=== PATIENT | male | born 1980 | race Caucasian/White ===

== ENCOUNTER 2020-02-04 07:48 | Emergency (ER) | payer OTHER ==
--- NOTE | 2020-02-04 08:10 | ED Physician Documentation ---
PD HPI DYSPNEA - Stated complaint Stated Complaint: SOA,COUGH - Chief complaint Chief Complaint: Resp - History obtained from History obtained from: Patient - History of Present Illness Timing - onset: How many weeks ago (1) Timing - onset during: Light activity Timing - duration: Weeks (1) Timing - details: Gradual onset, Still present (increasing cough and wheezing/dyspnea.) Inciting event(s): Other (has had environmental allergies in the past. Started with sinus congestion. Now cough and wheezing.) Improved by: Rest, Other (no change with OTC cough med) Worsened by: Exertion, Coughing. No: Laying flat Associated symptoms: Cough, Wheezing. No: Fever, Hemoptysis, Bilateral edema Similar symptoms before: Diagnosis (periodic bronchitis. no history of asthma.) Recently seen: Not recently seen Review of Systems Constitutional: reports: Myalgias. denies: Fever, Chills Nose: reports: Congestion, Sinus pressure / pain. denies: Rhinorrhea / runny nose Throat: denies: Sore throat Cardiac: denies: Chest pain / pressure, Palpitations Respiratory: reports: Dyspnea, Cough, Wheezing GI: denies: Abdominal Pain, Vomiting, Diarrhea Skin: denies: Rash, Lesions Neurologic: denies: Altered mental status, Headache PD PAST MEDICAL HISTORY - Past Medical History Past Medical History: No Cardiovascular: None Respiratory: Other Neuro: Headaches Endocrine/Autoimmune: None GI: None : None HEENT: Other Psych: None Musculoskeletal: Osteoarthritis Derm: None Other Past Medical History: pneumothorax r/t rib fracture - Past Surgical History Past Surgical History: Yes Ortho: Shoulder arthroplasty - Present Medications Home Medications: Ambulatory Orders Medication Instructions Recorded Confirmed Albuterol Sulfate [Albuterol 3 puffs IH QID #1 hfa.aer.ad 02/04/20 Sulfate Hfa] Benzonatate [Tessalon Perle] 100 mg PO TID PRN #30 capsule 02/04/20 cefUROXime axetiL [Ceftin] 500 mg PO Q12H #14 tablet 02/04/20 dexAMETHasone [Decadron] 4 mg PO DAILY #7 tablet 02/04/20 - Allergies Allergies/Adverse Reactions: Allergies Allergy/AdvReac Type Severity Reaction Status Date / Time No Known Drug Allergies Allergy Verified 02/04/20 07:54 - Social History Does the pt smoke?: No Smoking Status: Former smoker Does the pt drink ETOH?: Yes Does the pt have substance abuse?: No - Immunizations Immunizations are current?: Yes PD ED PE NORMAL - Vitals Vital signs reviewed: Yes - General General: Alert and oriented X 3, No acute distress, Well developed/nourished - HEENT HEENT: Ears normal, Pharynx benign - Neck Neck: Supple, no meningeal sign, No adenopathy - Cardiac Cardiac: RRR, No murmur - Respiratory Respiratory: No: Clear bilaterally (no coarse sounds. Has diffuse exp wheezing and prolonged exp phase. Normal voice. ) - Abdomen Abdomen: Soft, Non tender - Derm Derm: Normal color, Warm and dry - Extremities Extremities: No tenderness to palpate, Normal ROM s pain, No edema, No calf tenderness / cord - Neuro Neuro: Alert and oriented X 3, No motor deficit, Normal speech Results - Vitals Vitals: Vital Signs - 24 hr 02/04/20 02/04/20 02/04/20 07:55 08:01 08:37 Temperature 36.2 C L Heart Rate 73 72 71 Respiratory 20 18 Rate Blood Pressure 148/96 H 136/92 H O2 Saturation 95 95 02/04/20 02/04/20 09:07 09:20 Temperature 36.1 C L Heart Rate 65 68 Respiratory 18 18 Rate Blood Pressure 156/95 H O2 Saturation 98 Oxygen O2 Source Room air - Rads (name of study) chestx ray Radiology: Prelim report reviewed (no infiltrates/acute process. ), See rad report PD MEDICAL DECISION MAKING - ED course Complexity details: considered differential (most likely environmental allergies and sinus/airway symptoms. Consider infectious too. He asked about Z-Pack.), d/w patient Departure - Departure Disposition: 01 Home, Self Care Clinical Impression: Dyspnea Qualifiers: Dyspnea type: shortness of breath Qualified Code(s): R06.02 - Shortness of breath Upper respiratory infection Qualifiers: URI type: unspecified URI Qualified Code(s): J06.9 - Acute upper respiratory infection, unspecified Reactive airway disease with wheezing Qualifiers: Asthma severity: mild Asthma persistence: intermittent Asthma complication type: with acute exacerbation Qualified Code(s): J45.21 - Mild intermittent asthma with (acute) exacerbation Condition: Stable Record reviewed to determine appropriate education?: Yes Instructions: ED Upper Resp Infec Abx Tx Follow-Up: CATALINO ROMO [Primary Care Provider] - Prescriptions: Albuterol Sulfate [Albuterol Sulfate Hfa] 3 puffs IH QID #1 hfa.aer.ad cefUROXime axetiL [Ceftin] 500 mg PO Q12H #14 tablet dexAMETHasone [Decadron] 4 mg PO DAILY #7 tablet Benzonatate [Tessalon Perle] 100 mg PO TID PRN #30 capsule PRN Reason: Cough Comments: Your chest xray is normal without any signs of pneumonia or fluid congestion. This may be mainly environmental with allergies and reactive airway, causing the cough and wheezing. However we should treat for potential bacterial infection as well. It does not sound viral, though that would be a possibility. The treatment would be the same as what we are doing. Use the albuterol inhaler 2 to 3 puffs 4 times a day and extra times as needed for wheezing and cough. Decadron steroid daily for a week to reduce airway inflammation and reduce symptoms. Use Tessalon (benzonatate) as directed for cough. Ceftin antibiotic twice daily for a week as well. There has been increasing resistance of organisms to the macrolides like Z-Roberth so this is becoming less commonly used. Discharge Date/Time: 02/04/20 09:24
[2020-02-04] MEDS ORDERED: BENZONATATE 100 MG CAPSULE PO STA (08:23)
[2020-02-04] MEDS ORDERED: CHERRY SYRUP 10 ML UDC PO ONE (08:23)
[2020-02-04] MEDS ORDERED: DEXAMETHASONE 10 MG/ML VIAL PO STA (08:23)
[2020-02-04] MEDS ORDERED: ALBUTEROL 1 PUFF INH STA (08:24)
[2020-02-04] MEDS ORDERED: guaiFENesin/CODEINE 5 ML UDC PO STA (08:27)
[2020-02-04] MEDS ORDERED: cephALEXin 250 MG CAPSULE PO STA (08:27)
--- NOTE | 2020-02-04 08:54 | XRAY Report ---
PROCEDURE: Chest 2 View X-Ray INDICATIONS: dyspnea/ cough TECHNIQUE: 2 view(s) of the chest. COMPARISON: None. FINDINGS: Surgical changes and devices: Plate and screw fixation is seen of the left clavicle. Lungs and pleura: No pleural effusions or pneumothorax. Lungs are clear. Mediastinum: Mediastinal contours are normal. Heart size is normal. Bones and chest wall: No suspicious bony abnormalities. Soft tissues appear unremarkable. IMPRESSION: Clear lungs, without infiltrates. Prior left clavicle repair. Reviewed by: Roger Nichols MD on 02/04/2020 7:52 AM OPAL Approved by: Roger Nichols MD on 02/04/2020 7:52 AM OPAL Station ID: [id number]
[2020-02-04] MEDS ORDERED: IPRATROPIUM/ALBUTEROL 3 ML NEB INH STA (08:58)
[2020-02-04 09:21] VITALS: BP 156/95
== END 2020-02-04 09:24 | disposition home or self-care (01) ==
LOC: ED 07:48
DX: J06.9 Acute upper respiratory infection, unspecified (principal); J45.21 Mild intermittent asthma with (acute) exacerbation; Z87.891 Personal history of nicotine dependence
CPT/HCPCS: 71046; 94640; 99284; A9270

== ENCOUNTER 2021-08-23 14:55 | Outpatient (CLI) | payer OTHER | END 2021-08-23 14:56 | disposition home or self-care (01) | LOC: RT 14:55 | DX: J39.3 Upper respiratory tract hypersensitivity reaction, site unspecified (principal) | CPT/HCPCS: 94060; 94727; 94729 ==

== ENCOUNTER 2021-09-01 15:20 | Outpatient (CLI) | payer OTHER ==
--- NOTE | 2021-09-01 17:26 | MRI Report ---
PROCEDURE: IACS W/WO INDICATIONS: TINNITUS, UNSPECIFIED HEARING LOSS CONTRAST: IV CONTRAST: Gadavist ml: 8.8 TECHNIQUE: Noncontrast sagittal T1 spin echo, axial FLAIR, axial gradient echo, axial diffusion and ADC through the brain. Axial thin-slice 3D CISS, coronal balanced GE, axial T1 spin echo with fat saturation thr ough the internal auditory canals. After the administration of contrast, thin slice axial and noel l T1 spin echo with fat saturation through the internal auditory canals, and axial T1 spin echo with fat saturation through the brain. COMPARISON: Correlation is made with the accompanying cervical spine MRI 09/01/2021. FINDINGS: Image quality: Excellent. Cerebellopontine angles: No cerebellopontine angle masses. Inner ear structures appear normally for med. No suspicious enhancement in the internal auditory canal or along the course of the 7th cranial nerve. CSF spaces: Ventricles are normal in size and shape. No extra-axial fluid collections. Basal ciste rns are patent. Brain: No intracranial bleeds or mass effects. López-white matter interface is intact. No abnormal intracranial enhancement. Diffusion weighted images demonstrate no acute ischemic insults. Brainste m appears normal. Normal intravascular flow voids are present. Skull and face: Calvarial marrow signal is normal. Orbits appear normal. Sinuses: Moderate to severe mucosal thickening can be seen within the maxillary sinuses. There is at least moderate mucosal thickening within the ethmoid air cells. Mild mucosal thickening is seen elsew here within the paranasal sinuses. No significant abnormal fluid can be seen within the mastoid air c ells. IMPRESSION: No imaging explanation is found for the patient's presenting symptoms. Specifically, no findings of masses or abnormal enhancement can be found within the internal auditory canals or the ce rebellopontine angle cisterns. Relatively prominent paranasal sinus disease can be seen. Reviewed by: Roger Nichols MD on 09/01/2021 4:25 PM OPAL Approved by: Roger Nichols MD on 09/01/2021 4:25 PM OPAL Station ID: [id number]
--- NOTE | 2021-09-01 17:30 | MRI Report ---
PROCEDURE: Cervical Spine W/O INDICATIONS: CERVICALGIA TECHNIQUE: Noncontrast sagittal T1 spin echo and T2 fast spin echo, sagittal STIR, foraminal oblique sagittal T2 fast spin echo, and axial gradient echo or T2 fast spin echo through the cervical spine. COMPARISON: Correlation is made with the accompanying [facility] protocol brain MRI, 09/01/2021. FINDINGS: Image quality: Motion artifact is noted. Alignment and Curvature: There is straightening of the normal cervical lordosis. Bone Marrow: Marrow demonstrates normal overall signal. Spinal Cord: Visualized spinal cord has normal size and signal. No cerebellar tonsillar herniation. Paraspinous Soft Tissues: No paravertebral masses. Prevertebral soft tissues are normal in thicknes s. C2-C3: Normal in appearance. C3-C4: The disc height is well-preserved. There is loss of disc signal seen. Mild disc osteophyte c omplex is seen, which is eccentric to the right. Mild facet hypertrophy is seen. There is moderate right-sided and no left-sided neuroforaminal narrowing seen. No significant central canal narrowing i s seen. C4-C5: The disc height is well-preserved. There is loss of disc signal seen. Mild disc osteophyte c omplex is seen. Mild facet hypertrophy is seen. Mild to moderate bilateral neuroforaminal narrowin g can be seen. Mild central canal narrowing is seen. C5-C6: Moderate loss of disc height and signal are seen. Moderate disc osteophyte complex is seen. There is a central disc osteophyte protrusion seen. Mild to moderate bilateral facet hypertrophy is seen. There is moderate right-sided and moderate to severe left-sided neuroforaminal narrowing seen. Mild to moderate central canal narrowing is seen. Associated mass effect is seen upon the ventral sp inal cord. C6-C7: Mild to moderate loss of disc height and disc signal can be seen. Mild to moderate disc osteo phyte complex is seen. There is moderate right-sided and moderate to severe left-sided neuroforaminal narrowing. Minimal to mild central canal narrowing is seen. C7-T1: No significant abnormality is seen. IMPRESSION: Multiple levels of cervical spine degenerative change are seen, which are overall worst at the C5-C6 level. Reviewed by: Roger Nichols MD on 09/01/2021 4:28 PM OPAL Approved by: Roger Nichols MD on 09/01/2021 4:28 PM [facility] Station ID: [id number]
== END 2021-09-01 15:21 | disposition home or self-care (01) ==
LOC: DI 15:20
DX: H93.19 Tinnitus, unspecified ear (principal); M47.812 Spondylosis without myelopathy or radiculopathy, cervical region; M50.31 Other cervical disc degeneration, high cervical region; M48.02 Spinal stenosis, cervical region

== ENCOUNTER 2021-10-05 06:42 | Outpatient (CLI) | payer OTHER ==
--- NOTE | 2021-10-05 11:21 | MRI Report ---
PROCEDURE: Lumbar Spine W/O INDICATIONS: DORSALGIA TECHNIQUE: Noncontrast sagittal T1 spin echo and T2 fast echo, sagittal STIR, axial T2 fast spin echo through th e lumbar spine. COMPARISON: None. FINDINGS: Image quality: Excellent. Alignment and Curvature: There is normal bony alignment. Bone Marrow: Mild Modic type II degenerative endplate changes are seen at the L5-S1 level on the left . No acute vertebral body compression fractures. A small Schmorl's node is noted is noted at the infe rior endplate of L1. Spinal Cord: Conus medullaris terminates at the L1-2 disc space level. Visualized cord demonstrates normal signal and size. Paraspinous Soft Tissues: No paravertebral masses. Paraspinous musculature is normal in bulk. T12-L1: No significant disc bulging, spinal canal stenosis, or neuroforaminal narrowing. L1-L2: There is disc desiccation and mild loss of disc space height with mild circumferential disc bulging. Findings do not result in significant spinal canal stenosis or neuroforaminal narrowing. L2-L3: There is disc desiccation and loss of disc space height with mild circumferential disc bulg ing and mild facet hypertrophy. Findings result in significant spinal canal stenosis or neuroforamina l narrowing. L3-L4: Mild circumferential disc bulging is seen that is eccentric towards the left and there is mi ld facet hypertrophy. Findings result in mild narrowing of the left neural foramen without significan t right neural foraminal narrowing or spinal canal stenosis. L4-L5: Mild circumferential disc bulging is seen that is eccentric towards the left and there is mi ld facet hypertrophy. Findings result in mild crowding of the left lateral recess and moderate narrow ing of the left neural foramen without significant right neural foraminal narrowing or spinal canal s tenosis. L5-S1: There is disc desiccation and loss of disc space height with a small posterior annular fissu re. Mild bilateral facet hypertrophy is seen with a small left synovial cyst projecting dorsally. Fin dings result in effacement of the left lateral recess and moderate to severe narrowing of the left ne ural foramen as well as moderate narrowing of the right neural foramen without significant spinal can al stenosis. IMPRESSION: 1.At L5-S1, degenerative disc disease and facet hypertrophy are seen with a small posterior annular f issure. Findings result in moderate to severe left neural foraminal narrowing, moderate right neural foraminal narrowing, and effacement of the lateral recess without significant spinal canal stenosis. 2.At L4-5, degenerative changes result in moderate narrowing of the left neural foramen without signi ficant right neural foraminal narrowing or spinal canal stenosis. 3.Additional multilevel mild to moderate degenerative disc disease and facet hypertrophy as described in detail in the body report. Recommend correlation with symptoms and detailed neurological exam gayle kaur. Reviewed by: Jimbo Milner MD on 10/05/2021 11:20 AM PDT Approved by: Jimbo Milner MD on 10/05/2021 11:20 AM PDT Station ID: [id number]
== END 2021-10-05 06:43 | disposition home or self-care (01) ==
LOC: DI 06:42
PROVIDERS: ATTEND Student in an Organized Health Care Education/Training Program
DX: M47.26 Other spondylosis with radiculopathy, lumbar region (principal); M47.27 Other spondylosis with radiculopathy, lumbosacral region; M51.16 Intervertebral disc disorders with radiculopathy, lumbar region; M48.061 Spinal stenosis, lumbar region without neurogenic claudication; M51.17 Intervertebral disc disorders with radiculopathy, lumbosacral region; M71.38 Other bursal cyst, other site; M48.07 Spinal stenosis, lumbosacral region